=== PATIENT | male | born 2000 | race Hispanic/Latino ===

== ENCOUNTER 2024-04-20 22:39 | Emergency (ER) | payer BC, OTHER ==
[~2024-04-20] VITALS: Ht 172.7 cm; Wt 89.4 kg
[2024-04-20] MEDS: ketOROlac 15MG/ML VIAL (15MG/ML) IM ONE (00:30)
[2024-04-21] MEDS ORDERED: IBUP-2070 PO (00:44)
--- NOTE | 2024-04-21 00:44 | ERN ---
General Chief Complaint: Ankle Problem Stated Complaint: RT ANKLE PAIN Time Seen by MD: 22:41 Time Seen by Midlevel: 22:41 Source: patient History of Present Illness Initial Comments 23-year-old male who presents to the emergency department due to right ankle pain. Patient states pain initiated couple of weeks ago denies any injuries, or trauma to the ankle. Has been having pain off and on since, today when removing his sock he heard a pop. Patient has a history of multiple ankle sprains. Patient reports pain when walking, swelling but denies any numbness, fevers or further associated symptoms. Allergies: Coded Allergies: No Known Allergies (Unverified Allergy, Unknown, 04/20/24) Home Meds Active Scripts Ibuprofen (Ibuprofen) 600 Mg Tablet, 1 TAB PO TID for pain for 10 Days, #30 TAB 0 Refills with food Prov:FREDDIE YOUNG 04/21/24 Past Medical History Past Medical History: No Pertinent History Past Surgical History: None ROS Dictation Constitutional: Negative for fever,chills, and weight loss Eyes: Negative for injury, pain,redness, and discharge ENT: Negative for injury,pain or swelling Cardiovascular: Negative for chest pain, palpitations, and edema Respiratory: Negative for shortness of breath, cough, and wheezing, Abdomen/GI: Negative for abdominal pain, nausea, vomiting, diarrhea, and constipation Back: Negative for injury and pain : Negative for painful urination, bleeding or discharge MS/Extremity: Positive for right ankle pain Negative for injury and deformity Skin: Negative for rash, and discoloration Neuro: Negative for headache, weakness, numbness, tingling, and seizure Psych: Negative for suicide ideation, homicidal ideation, and hallucinations Physical Exam Physical Exam Dictation General: awake, alert, no acute distress Head/Face: Normocephalic, atraumatic Eyes: PERRL, EOMI, normal conjunctiva ENT: oral cavity clear, oral mucosa moist Neck: Supple, normal range of motion Cardiovascular: RRR, normal S1/S2 Respiratory: No respiratory distress Skin: Warm, dry, normal turgor, no rash MS/Extremity: Pulses equal, no cyanosis, neurovascular intact, FROM. Tenderness to palpation to the lateral aspect and anterior part of the right ankle with mild swelling noted, no ecchymosis, no erythema, no obvious deformities. Neuro: COAx4, GCS 15, strength 5/5, CN 2-12 intact, normal cerebellar exam MDM MDM: Differential diagnosis: Sprain, strain, subluxation, fracture Rationale:23-year-old male who presents to the emergency department due to right ankle pain. Patient states pain initiated couple of weeks ago denies any injuries, or trauma to the ankle. Has been having pain off and on since, today when removing his sock he heard a pop. Patient has a history of multiple ankle sprains. Patient reports pain when walking, swelling but denies any numbness, fevers or further associated symptoms. Per physical examination tenderness to palpation to the lateral aspect and anterior part of the right ankle with mild swelling noted, no ecchymosis, no erythema, no obvious deformities, neurovascularly intact. X-rays of the right ankle obtained fragments noted to the medial and lateral malleolus possibly from previous fracture/injury. Compared to x-rays from 2017 fragmentations are not noted there however patient reports he has had multiple sprains since 2017 to date. Patient was placed on a boot and given crutches. Recommended to remain off the foot, elevation, ice, and medication for inflammation and pain. Patient was referred to follow up with Orthopedic. Advised to follow up with PCP. Return to the emergency department if any worsening symptoms. Patient verbalized understanding. Patient stable for discharge. There are no social concerns with this patient. I independently interpreted the test that were performed, results were reviewed by me and considered findings on radiology if ordered. Medical management and examination interpretation discussions were had by me with other qualified healthcare professionals as indicated for the patient's care. ED Course Orders Procedure Category Date Status Time Ankle Comp 3vws Rt RAD 04/20/24 Taken 22:52 Foot Limited 2vws Rt RAD 04/20/24 Taken 22:52 Ketorolac PHA 04/20/24 Complete Tromethamine 15mg/Ml 23:00 Posterior Ankle Splint ALICE.ER 04/20/24 In Process 23:47 Current Medications Medications (Trade) Dose Ordered Sig/Holly Route PRN Reason Start Time Stop Time Status Last Admin Dose Admin Ketorolac Tromethamine (toRADol) 15 mg ONCE ONCE IM 04/20/24 23:00 04/20/24 23:04 DC Vital Signs Date Time Temp Pulse Resp B/P (MAP) Pulse Ox O2 Delivery O2 Flow Rate FiO2 04/20/24 22:41 98.1 77 20 126/86 97 Room Air DX & DISP Disposition: Discharge Departure Impression: Primary Impression: Ankle sprain Condition: Stable Scripts Ibuprofen (Ibuprofen) 600 Mg Tablet 1 TAB PO TID for pain for 10 Days, #30 TAB 0 Refills with food Prov: FREDDIE YOUNG 04/21/24 Additional Instructions: Discharge home. Rest. Follow up with primary care DrJah in 24 hours. Return to the ER for any acute changes or worsening symptoms. If any medications were prescribed take as directed. Okay to continue home medications unless otherwise discussed during your visit in the emergency room today. Patient was also advised to follow-up with primary care physician in 1 to 2 days for continued monitoring. Referrals: EASTON KAPLAN MD,JERILYN GORMAN,CRISTINE ELY,KALINA MOSQUEDA I performed the substantive portion of the visit. I have reviewed and personally made and approve the management plan that is documented in the notes by myself or the CRISTHIAN. I acknowledge full responsibility for the patient's management plan. FREDDIE YOUNG Apr 21, 2024 00:44
[2024-04-21 00:48] VITALS: BP 128/78; PULSE 72; RESP 16; TEMP 98.2; O2SAT 99
--- NOTE | 2024-04-21 00:49 | NUR ---
WALKING BOOT AND CRUTCHES PROVIDED, CRUTCH TRAINING VIA RETURN DEMONSTRATION
--- NOTE | 2024-04-21 09:34 | HMCIMG ---
RIGHT FOOT RADIOGRAPHS - 3 VIEWS INDICATION: Pain and swelling COMPARISON: None FINDINGS: AP, lateral, and oblique views. No acute fracture or subluxation identified. Midfoot alignment is well maintained. No radiopaque foreign body noted. IMPRESSION: No evidence for fracture or subluxation.
--- NOTE | 2024-04-21 09:36 | HMCIMG ---
RIGHT ANKLE RADIOGRAPHS - 3 VIEWS INDICATION: Pain and swelling COMPARISON: None FINDINGS: AP, lateral, and oblique views. No acute fracture or subluxation identified. A couple of miniscule subcentimeter accessory ossicle subjacent to the tip of the medial malleolus. 3 mm loose ossific body within the talofibular joint space and 5 mm loose ossific body more higher near the lateral talar dome with on the oblique view may just represent anterior and posterior articular surface spurring is seen on the lateral view.. The talar dome is intact. Ankle mortise and tibial plafond are well maintained. No significant joint effusion is present. No radiopaque foreign body noted. IMPRESSION: Degenerative changes as described, without acute fracture or subluxation.
== END 2024-04-21 00:59 | disposition home or self-care (01) ==
LOC: EDH 22:39
DX: S93.401A Sprain of unspecified ligament of right ankle, initial encounter (principal); Z79.1 Long term (current) use of non-steroidal anti-inflammatories (NSAID); X58.XXXA Exposure to other specified factors, initial encounter; Y93.89 Activity, other specified; Y92.89 Other specified places as the place of occurrence of the external cause; Y99.8 Other external cause status
CPT/HCPCS: 99284; 73610; 73620; 96372; J1885